=== PATIENT | female | born 1985 ===

== ENCOUNTER 2018-10-15 10:14 | Emergency (ER) | payer OTHER, SELFPAY ==
[2018-10-15] MEDS ORDERED: MORPHINE 2 MG/ML SYR ONE ×2 (10:51→13:55)
[2018-10-15] MEDS ORDERED: ONDANSETRON 4 MG/2 ML VIAL ONE ×2 (10:51→16:18)
[2018-10-15 11:17] LABS: Absolute Lymphocytes (CBC) 1.6 K/uL (0.7-4.9); Absolute Monocytes 0.5 K/uL (0.1-1.3); Basophils % 0.7 % (0-1.3); Eosinophils % 3.5 % (0-4.4); Hematocrit 34.9 % (36.0-45.0); MPV 10.4 fL (7.6-11.3); Monocytes % 8.6 % (3.3-12.3); RBC Red Blood Cell Count 4.02 M/uL (3.86-4.86)
[2018-10-15 11:24] LABS: Protime INR 0.96
[2018-10-15 11:37] LABS: ALT/SGPT 15 U/L (12-78); AST/SGOT 14 U/L (15-37); Albumin 3.3 g/dL (3.4-5.0); Alkaline Phosphatase 55 U/L (45-117); BUN Blood Urea Nitrogen 10 mg/dL (7-18); Bicarbonate 27 mmol/L (21-32); Bilirubin Direct < 0.1 mg/dL (0-0.2); Bilirubin Total 0.2 mg/dL (0.2-1.0); Glucose Level 69 mg/dL (74-106); Sodium Level 140 mmol/L (136-145)
[2018-10-15] MEDS ORDERED: DIPHENHYDRAMINE 50 MG/ML VIAL ONE (12:47)
[2018-10-15 13:10] LABS: Barbiturates NEGATIVE (NEGATIVE); Benzodiazepines NEGATIVE (NEGATIVE); Cocaine POSITIVE (NEGATIVE); METHAMPHETAM NEGATIVE (NEGATIVE); Methadone NEGATIVE (NEGATIVE); Opiates NEGATIVE (NEGATIVE); Phencyclidine NEGATIVE (NEGATIVE); THC Cannibis NEGATIVE (NEGATIVE)
[2018-10-15 13:35] LABS: Lipase 99 U/L (73-393)
[2018-10-15 13:44] LABS: HCG, Quantitative < 1 mIU/mL (1-3)
--- NOTE | 2018-10-15 13:50 | RAD REPORT ---
EXAM DESCRIPTION: CT - Abdomen Pelvis W Contrast - 10/15/2018 1:35 pm CLINICAL HISTORY: Abdominal pain with nausea. COMPARISON: none. TECHNIQUE: Computed axial tomography of the abdomen pelvis was obtained. 100 cc Isovue-300 was admin istered intravenously. Oral contrast was not requested which limits evaluation of bowel. All CT scans are performed using dose optimization technique as appropriate and may include automated exposure control or mA/KV adjustment according to patient size. FINDINGS: The liver, spleen, pancreas, adrenal and kidneys appear unremarkable. There is no evidence of diverticulitis. . An adnexal mass is not seen. IMPRESSION: No acute abnormality is displayed.
[2018-10-15 14:13] LABS: Urine Blood TRACE (NEG); Urine Glucose NEGATIVE (NEG); Urine Protein NEGATIVE (NEG)
--- NOTE | 2018-10-15 14:13 | RAD REPORT ---
EXAM DESCRIPTION: US - Pelvis Complete - 10/15/2018 11:49 am CLINICAL HISTORY: Pelvic pain /vaginal bleeding COMPARISON: None FINDINGS: The uterus measures 8 x 5 x 5cm. The endometrial stripe is not well visualized but does no t appear thickened. A fibroid is not seen. The right ovaries normal in size and echotexture. Left ovary is not visualized. An adnexal mass is no t noted. No significant free fluid is seen. IMPRESSION: No gross abnormality seen If patient's symptoms persist endovaginal sonogram would be recommended
[2018-10-15] MEDS ORDERED: AZITHROMYCIN 250 MG TAB ONE (15:16)
[2018-10-15] MEDS ORDERED: CEFTRIAXONE/SWI 1gm 1 GM/10 ML SYR ONE (15:16)
--- NOTE | 2018-10-15 16:17 | EKG ---
Test Date: 2018-10-15 Test Time: 10:37:59 Senior Piping Designer: YO MEASUREMENT RESULTS: Intervals: Rate: 72 CT: 144 QRSD: 76 QT: 396 QTc: 433 [place]: P: 58 CT: 144 QRS: 59 T: 43 INTERPRETIVE STATEMENTS: Normal sinus rhythm Normal ECG No previous ECG available for comparison Electronically Signed On 10-15-18 16:16:53 FEDERAL JUDGE by Sandeep Gregory
[2018-10-15] MEDS ORDERED: ACETAMINOPHEN 500 MG TAB ONE (16:57)
[2018-10-15] MEDS ORDERED: LORazepam 2 MG/ML VIAL ONE (16:57)
[2018-10-15] MEDS ORDERED: metroNIDAZOLE 500 MG TABLET ONE (23:11)
[2018-10-15] MEDS ORDERED: DOXYCYCLINE 100 MG CAP PO ONE (23:11)
[2018-10-16] MEDS ORDERED: metroNIDAZOLE 500 MG TABLET ONE (10:24)
[2018-10-16] MEDS ORDERED: LORazepam 2 MG/ML VIAL ONE (15:07)
[2018-10-17] MEDS ORDERED: LORazepam 2 MG/ML VIAL ONE ×2 (06:24→09:59)
[2018-10-17] MEDS ORDERED: HYDROCODONE/APAP 10/325 TAB ONE (07:38)
[2018-10-17] MEDS ORDERED: DIAZEPAM 5 MG TABLET ONE (10:17)
[2018-10-17] MEDS ORDERED: ZIPRASIDONE MESYLA 20 MG/VIAL IM ONE ×2 (10:49→12:08)
[2018-10-17] MEDS ORDERED: WATER FOR INJ,STERILE 10 ML ONE ×2 (10:49→12:08)
[2018-10-17] MEDS ORDERED: IBUPROFEN 200 MG TAB PO ONE (14:43)
[2018-10-17] MEDS ORDERED: IBUPROFEN 400 MG TAB ONE (14:43)
[2018-10-17] MEDS ORDERED: DIPHENHYDRAMINE 50 MG/ML VIAL ONE ×2 (16:14→20:09)
[2018-10-18] MEDS ORDERED: DIPHENHYDRAMINE 50 MG/ML VIAL ONE (01:52)
[2018-10-18] MEDS ORDERED: ACETAMINOPHEN 500 MG TAB ONE (02:13)
[2018-10-18] MEDS ORDERED: LORazepam 2 MG/ML VIAL ONE (05:49)
[2018-10-18] MEDS ORDERED: DIPHENHYDRAMINE 25 MG TAB/CAP ONE (06:02)
--- NOTE | 2018-10-18 06:21 | EDPHYS ---
Physician Documentation [facility] Name: Christine Dangelo Age: 33 yrs Sex: Female : 1985 Arrival Date: 10/15/2018 Time: 10:17 Bed 18 Private MD: ED Physician Jacob Kerr HPI: 10/15 10:38 This 33 yrs old Female presents to ER via EMS with complaints of Suicidal Ideation. cp 10:38 The patient presents to the emergency department with auditory hallucinations. Onset: cp The symptoms/episode began/occurred at an unknown time. Past psychiatric history: Psychiatric medications include: Zyprexa, the patient has had a prior suicide gesture, where the patient took pills/meds, the patient has a previous inpatient psychiatric history, last week. 10:38 The patient presents with vaginal bleeding that is with no clots, vaginal discharge, cp lower abdomen pain. 10:38 Associated signs and symptoms: Pertinent negatives: constipation, diarrhea, fever. The cp patient's method of control includes nothing. SITE HEAD: 10:29 reports she is unsure since she's been bleeding for 4 weeks em Historical: - Allergies: 10:28 PENICILLINS; em 10:28 Toradol; em 10:28 Pyridium; em - Home Meds: 10:28 hydroxyzine HCl 25 mg Oral tab [Active]; trazodone 50 mg Oral tab [Active]; olanzapine em 5 mg oral TbDL [Active]; - PMHx: 10:29 osteomyelitis; em - PSHx: 10:29 ; right hand surgery; em - Immunization history:: Adult Immunizations up to date. - Social history:: Smoking status: Patient uses tobacco products, smokes one-half pack cigarettes per day. - Ebola Screening: : Patient negative for fever greater than or equal to 101.5 degrees Fahrenheit, and additional compatible Ebola Virus Disease symptoms Patient denies exposure to infectious person Patient denies travel to an Ebola-affected area in the 21 days before illness onset No symptoms or risks identified at this time. ROS: 10:40 Constitutional: Negative for body aches, chills, fever, poor PO intake. cp 10:40 Eyes: Negative for injury, pain, redness, and discharge. cp 10:40 ENT: Negative for drainage from ear(s), ear pain, sore throat, difficulty swallowing, difficulty handling secretions. 10:40 Cardiovascular: Negative for chest pain, edema, palpitations. 10:40 Respiratory: Negative for cough, shortness of breath, wheezing. 10:40 Abdomen/GI: Positive for abdominal pain, of the right lower quadrant and left lower quadrant, Negative for vomiting, diarrhea, constipation, black/tarry stool, rectal bleeding. 10:40 Back: Negative for pain at rest, pain with movement, radiated pain. 10:40 : Positive for pelvic pain, vaginal bleeding, vaginal discharge, Negative for urinary symptoms. 10:40 Skin: Negative for cellulitis, rash. 10:40 Neuro: Negative for altered mental status, headache, weakness. 10:40 All other systems are negative. Exam: 10:45 ECG was reviewed by the Attending Physician. cp 11:00 Constitutional: The patient appears in no acute distress, alert, awake, non-toxic, well cp developed, well nourished, uncomfortable. 11:00 Head/Face: Normocephalic, atraumatic. cp 11:00 Eyes: Periorbital structures: appear normal, Pupils: equal, round, and reactive to light and accomodation, Extraocular movements: intact throughout, Conjunctiva: normal, no exudate, no injection, Sclera: no appreciated abnormality, Lids and lashes: appear normal, bilaterally. 11:00 ENT: External ear(s): are unremarkable, Ear canal(s): are normal, clear, TM's: are normal, Nose: is normal, Mouth: Lips: moist, Oral mucosa: pink and intact, moist, Posterior pharynx: is normal, airway is patent, no erythema, no exudate, Voice: is normal. 11:00 Neck: ROM/movement: is normal, is supple. 11:00 Chest/axilla: Inspection: normal, Palpation: is normal, no crepitus, no tenderness. 11:00 Cardiovascular: Rate: normal, Rhythm: regular. 11:00 Respiratory: the patient does not display signs of respiratory distress, Respirations: normal, no use of accessory muscles, no retractions, no splinting, no tachypnea, labored breathing, is not present, Breath sounds: are clear throughout, no decreased breath sounds, no stridor, no wheezing. 11:00 Abdomen/GI: Inspection: abdomen appears normal, Bowel sounds: active, all quadrants, Palpation: soft, in all quadrants, mild abdominal tenderness, in the right lower quadrant and left lower quadrant, rebound tenderness, is not appreciated, involuntary guarding, is not appreciated. 11:00 Back: pain, is absent, ROM is normal. 11:00 Skin: cellulitis, is not appreciated, no rash present. 11:00 Neuro: Orientation: to person, place \\T\\ time. Mentation: is normal, Cerebellar function: is grossly normal, Motor: moves all fours, strength is normal, Sensation: is normal. 11:00 Psych: Patient having thoughts of suicide. Plan for suicide is walk into traffic Delusions/hallucinations are present and described as auditory voices. 14:05 : Pelvic Exam: External exam: is normal, Speculum exam: scant bleeding, no cp cervicitis, os that is closed, no tissue in cervix is seen, no tissue in vagina is seen, bimanual exam reveals cervical motion tenderness, uterine tenderness, right adnexal tenderness, left adnexal tenderness, no adnexal mass on right, no adnexal mass on left, discharge, bloody, the nurse was present for the exam. Vital Signs: 10:29 BP 110 / 71; Pulse 89; Resp 18; Temp 97.9(O); Pulse Ox 100% on R/A; Weight 68.04 kg; em Height 5 ft. 5 in. (165.10 cm); Pain 8/10; 14:00 BP 109 / 74; Pulse 75; Resp 16; Temp 98.2(O); Pulse Ox 99% ; em 18:16 BP 98 / 59; Pulse 90; Resp 17; Temp 98.5; Pulse Ox 98% ; rf 20:47 BP 95 / 61; Pulse 86; Resp 16; Temp 98.1(TE); Pulse Ox 97% ; ag4 02/09 06:49 BP 93 / 67; Pulse 68; Resp 15; Temp 97.9(TE); Pulse Ox 98% on R/A; ag4 10:29 BP 101 / 62; Pulse 88; Resp 16; Temp 98.0; Pulse Ox 99% on R/A; jd2 16:03 BP 116 / 79; Pulse 80; Resp 18; Pulse Ox 100% ; jd2 21:32 BP 94 / 59; Pulse 70; Resp 16; Temp 98.4; Pulse Ox 98% on R/A; ar5 10/17 04:05 BP 102 / 71; Pulse 80; Resp 18; Temp 98.3; Pulse Ox 97% on R/A; ar5 07:30 BP 119 / 71; Pulse 92; Resp 16; Pulse Ox 97% on R/A; dh3 12:19 BP 110 / 72; Pulse 81; Resp 18; Pulse Ox 100% on R/A; aj1 16:19 BP 103 / 70; Pulse 83; Resp 17; Pulse Ox 100% on R/A; aj1 10/18 01:38 BP 91 / 64; Pulse 76; Resp 14; Temp 98(O); Pulse Ox 98% on R/A; tl2 07:31 BP 106 / 76; Pulse 69; Resp 18; Temp 97.8(O); Pulse Ox 100% on R/A; mh5 10/15 10:29 Body Mass Index 24.96 (68.04 kg, 165.10 cm) em MDM: 10/15 10:18 Patient medically screened. 14:30 Data reviewed: vital signs, nurses notes, lab test result(s), radiologic studies, CT cp scan, ultrasound. 22:50 ED course: VSS. Patient sleeping in exam room at this time. 10/16 03:19 Transition of care: After a detail discussion of the patient's case, care is jmm transferred to Kyle Adler MD. 07:30 ED course: Patient resting quietly in room. She reports hearing voices that tell her to pm1 hurt and kill herself. Patient has been hearing these voices for years. 14:50 ED course: Patient reports increased anxiety, will give order Ativan. Patient pending pm1 placement to psychiatric facility. 17:08 ED course: Patient complaining of continued anxiety. Requested TV. Patient calm after pm1 moving her to room with TV. 19:44 Counseling: I had a detailed discussion with the patient and/or guardian regarding: snw spoke with pt and asked how it was going. Pt states, "I'm waiting for a bed. I'm hearing voices and suicidal." I asked pt what her plan was. Pt states, "I'd walk into traffic". 10/17 01:05 ED course: no complaints, pt still states suicidal ideation, no outbursts, cooperative, snw voluntary. 06:08 ED course: Talked to patient. Said she is very anxious. Requests medication for her pkl anxiety. Ask if she is having suicidal ideation still. She said she is.. 07:00 ED course: Pt still suicidal, warrant expires soon, cooperative and still reports plan rn to jump in front of car. Per charge nurse, mental health deputy plans to pick her up and take her to mental health facility. . 16:09 ED course: Pt still mildly agitated, benadryl ordered, otherwise not causing any rn problems. . 10/18 09:09 Response to treatment: the patient's symptoms have mildly improved after treatment, and gs as a result, I will continue to observe the patient. ED course: PT SEEN AND EXAMINED AGITATED WANTS BACK ON HER REGULAR MEDS, CONFIRMED MEDS FROM [facility]. AWAITING PLACEMENT.. 10/15 10:19 Order name: Acetaminophen; Complete Time: 12:28 cp 10/15 10:19 Order name: Basic Metabolic Panel; Complete Time: 12:28 cp 10/15 14:21 Interpretation: Normal except: CL 109; GLUC 69; CA 8.3. cp 10/15 10:19 Order name: CBC with Diff; Complete Time: 11:23 cp 10/15 11:24 Interpretation: Normal except: HGB 11.4; HCT 34.9; RDW 17.7. cp 10/15 10:19 Order name: ETOH Level; Complete Time: 12:28 cp 10/15 10:19 Order name: Hepatic Function; Complete Time: 12:28 cp 10/15 10:19 Order name: PT-INR; Complete Time: 12:28 cp 10/15 10:19 Order name: Ptt, Activated; Complete Time: 12:28 cp 10/15 10:19 Order name: Salicylate; Complete Time: 12:28 cp 10/15 10:19 Order name: Urine Drug Screen; Complete Time: 14:19 cp 10/15 14:20 Interpretation: Normal except: NELLIE POSITIVE. cp 10/15 10:35 Order name: Lipase; Complete Time: 14:19 cp 10/15 10:35 Order name: Wet Prep; Complete Time: 14:19 cp 10/15 14:20 Interpretation: Reviewed. cp 10/15 10:35 Order name: GC (GONORR/CHLAMYDIA) Probe cp 10/15 12:56 Order name: Urine Dipstick--Ancillary (enter results); Complete Time: 14:19 eb 10/15 10:35 Order name: US Pelvis Complete; Complete Time: 14:19 cp 10/15 12:30 Order name: CT Abd/Pelvis - W/Contrast: no oral contrast; Complete Time: 14:19 cp 10/15 12:56 Order name: Urine --Ancillary (enter results); Complete Time: 14:19 eb 10/15 13:24 Order name: HCG, Quantitative; Complete Time: 14:19 EDMS 10/15 10:19 Order name: EKG; Complete Time: 10:20 cp 10/15 10:19 Order name: EKG - Nurse/Tech; Complete Time: 11:26 cp 10/15 10:19 Order name: IV Saline Lock; Complete Time: 11:26 cp 10/15 10:19 Order name: Labs collected and sent; Complete Time: 11:26 cp 10/15 14:18 Order name: Diet Regular; Complete Time: 14:18 em 10/16 08:47 Order name: Diet Regular; Complete Time: 08:48 jd2 10/16 11:39 Order name: Diet Regular; Complete Time: 11:40 jd2 10/16 15:56 Order name: Diet Regular; Complete Time: 15:57 jd2 10/17 07:57 Order name: Diet Regular; Complete Time: 07:58 hb 10/17 11:04 Order name: Diet Finger Food; Complete Time: 11:04 dh3 10/17 14:21 Order name: Diet Finger Food; Complete Time: 14:21 dh3 10/17 16:38 Order name: Diet Finger Food; Complete Time: 16:38 aj1 10/17 16:44 Order name: Diet Finger Food; Complete Time: 16:44 dh3 10/18 07:37 Order name: Diet Regular; Complete Time: 07:38 mh5 10/15 10:19 Order name: Urine Dipstick-Ancillary (obtain specimen); Complete Time: 13:42 cp EC/08 10:45 Rate is 72 beats/min. Rhythm is regular. OK interval is normal. QRS interval is normal. cp QT interval is normal. T waves are Inverted in lead V2. Interpreted by me. Reviewed by me. Administered Medications: 11:10 Drug: Zofran 4 mg Route: IVP; Site: left upper arm; sv 13:42 Follow up: Response: No adverse reaction em 11:12 Drug: morphine 2 mg Route: IVP; Site: left upper arm; sv 13:42 Follow up: Response: No adverse reaction; Pain is decreased em 12:47 Drug: Benadryl 12.5 mg Route: IVP; Site: left upper arm; hb 13:42 Follow up: Response: No adverse reaction em 13:50 Drug: morphine 2 mg Route: IVP; Site: left upper arm; em 16:00 Follow up: Response: No adverse reaction; Pain is decreased em 16:11 Drug: Zofran 4 mg Route: IVP; Site: left upper arm; em 16:43 Follow up: Response: No adverse reaction; Nausea is decreased em 16:18 Drug: Zithromax 1 grams Route: PO; em 16:43 Follow up: Response: No adverse reaction em 16:33 Drug: Rocephin - (cefTRIAXone) 1 grams {Note: administered IVP per pharmacy at this aa5 time. .} Route: IVPB; Infused Over: 30 mins; Site: right upper arm; 16:48 Drug: Ativan 0.5 mg Route: IVP; Site: left upper arm; aa5 17:32 Follow up: Response: No adverse reaction; Anxiety decreased em 16:57 Drug: Tylenol 1000 mg Route: PO; em 17:32 Follow up: Response: No adverse reaction em 23:03 Drug: Doxycycline 100 mg Route: PO; ea 10/16 00:00 Follow up: Response: No adverse reaction ea 10/15 23:03 Drug: metroNIDAZOLE 250 mg Route: PO; ea 10/16 05:27 Follow up: Response: No adverse reaction ea 10:10 Drug: Flagyl 2 grams Route: PO; em 10:34 Follow up: Response: No adverse reaction em 15:03 Drug: Ativan 0.5 mg Route: IVP; Site: left upper arm; em 16:30 Follow up: Response: No adverse reaction em 02 06:23 Not Given (Other Intervention Used): Ativan 0.5 mg IVP once jb4 06:23 Drug: Ativan 1 mg Route: IVP; Site: left antecubital; jb4 07:29 Follow up: Response: No adverse reaction; Anxiety decreased hb 07:28 Drug: [place] 10 mg-325 mg 1 tabs Route: PO; hb 08:15 Follow up: Response: No adverse reaction hb 09:51 Drug: Ativan 1 mg Route: IVP; Site: left antecubital; hb 11:00 Follow up: Response: No change in condition hb 10:09 Drug: Valium 5 mg Route: PO; hb 11:00 Follow up: Response: No change in condition hb 10:41 Drug: Geodon 10 mg Route: IM; Site: right deltoid; hb 12:00 Drug: Geodon 10 mg Route: IM; Site: right deltoid; aj1 10/18 07:22 Follow up: Response: No adverse reaction hj 10/17 16:06 Drug: Benadryl 25 mg Route: IVP; Site: left antecubital; aj1 20:02 Drug: Benadryl 25 mg Route: IVP; Site: left upper arm; tl2 21:00 Follow up: Response: No adverse reaction; Anxiety decreased tl2 10/18 01:45 Drug: Benadryl 25 mg Route: IVP; Site: left upper arm; tl2 07:22 Follow up: Response: No adverse reaction hj 02:05 Drug: Tylenol 1000 mg Route: PO; tl2 03:00 Follow up: Response: No adverse reaction; Pain is decreased jb4 05:00 Drug: Benadryl 25 mg Route: PO; jb4 06:57 Follow up: Response: No adverse reaction jb4 08:42 Drug: [place] 5 mg-325 mg 1 tabs Route: PO; hj 09:19 Follow up: Response: No adverse reaction hj 08:42 Drug: KeFLEX 500 mg Route: PO; hj 09:19 Follow up: Response: No adverse reaction hj 08:42 Drug: hydrOXYzine 25 mg Route: PO; hj 09:18 Follow up: Response: No adverse reaction hj 09:17 Drug: ZyPREXA 10 mg Route: PO; hj 09:20 Follow up: Response: No adverse reaction hj 09:17 Drug: TRAZADONE 50 mg Route: PO; hj 09:19 Follow up: Response: No adverse reaction hj Disposition: 06:16 Co-signature as Attending Physician, Kristian Ochoa MD I agree with the assessment and ricky plan of care. Disposition: 10/18/18 06:19 Transfer ordered to Psych Facility. Diagnosis are Suicidal ideations, Major depressive disorder, recurrent, Cocaine abuse. - Reason for transfer: Higher level of care. - Accepting physician is psych. - Condition is Stable. - Problem is new. - Symptoms have improved. Signatures: Dispatcher [employer] EDAR Shakira Ponce, RN RN aj1 Shannon Arellano, RN Kristian Estrada MD MD cha Lam, Pin, MD MD pkPriya Pickett, GOLF TECHNICIAN-C GOLF TECHNICIAN-Csnw Matias Cruz PA PA jmm Munoz, Edgar, TERMINAL MAKEUP OPERATOR TERMINAL MAKEUP OPERATOR em Kiran Cole MD MD rn Calderon, Audri RN RN aa5 Danny Hernandez, RN Kristian Rogers PA PA cp Marinas, Patrick, STILL RUNNER STILL RUNNER pm1 Ashley Vance, RN RN hb Jade Davila RN RN tl2 Isaiah Storm, RN RN jb4 Suellen Mills RN RN Jacob lSoan MD MD gs Corrections: (The following items were deleted from the chart) 10/15 13:21 10:39 QUANTITATIVE HCG+C.LAB.BRZ ordered. EDAR EDMS 14:21 14:21 Normal except: CL 109; GLUC 69. cp cp 10/18 10:05 06:19 10/18/2018 06:19 Transfer ordered to Psych Facility. Diagnosis is Suicidal hj ideations; Major depressive disorder, recurrent; Cocaine abuse. Reason for transfer: Higher level of care. Accepting physician is psych. Condition is Stable. Problem is new. Symptoms have improved. ricky
--- NOTE | 2018-10-18 06:21 | ER ---
Nurse's Notes [facility] Name: Christine Dangelo Age: 33 yrs Sex: Female : 1985 Arrival Date: 10/15/2018 Time: 10:17 Bed 18 Private MD: Diagnosis: Suicidal ideations;Major depressive disorder, recurrent;Cocaine abuse Presentation: 10/15 10:17 Presenting complaint: EMS states: called out for auditory hallucinations and SI to em [facility], pt reports voices saying she is "bad person and doesn't need to live" does not have a plan, also reports PID with groin pain that radiates to right side, denies fever, N/V. Transition of care: patient was not received from another setting of care. Onset of symptoms was October 15, 2018. Risk Assessment: Do you want to hurt yourself or someone else? Patient reports no desire to harm self or others. Initial Sepsis Screen: Does the patient meet any 2 criteria? No. Patient's initial sepsis screen is negative. Does the patient have a suspected source of infection? No. Patient's initial sepsis screen is negative. Care prior to arrival: None. 10:17 Method Of Arrival: EMS: [facility] em 10:18 Acuity: STEPHANI 2 hb Triage Assessment: 10:29 General: Appears in no apparent distress. comfortable, Behavior is calm, cooperative. em Pain: Complains of pain in groin Pain radiates to right iliac crest Pain currently is 8 out of 10 on a pain scale. BUSINESS CONSULTANT: 10:29 reports she is unsure since she's been bleeding for 4 weeks em Historical: - Allergies: 10:28 PENICILLINS; em 10:28 Toradol; em 10:28 Pyridium; em - Home Meds: 10:28 hydroxyzine HCl 25 mg Oral tab [Active]; trazodone 50 mg Oral tab [Active]; olanzapine em 5 mg oral TbDL [Active]; - PMHx: 10:29 osteomyelitis; em - PSHx: 10:29 ; right hand surgery; em - Immunization history:: Adult Immunizations up to date. - Social history:: Smoking status: Patient uses tobacco products, smokes one-half pack cigarettes per day. - Ebola Screening: : Patient negative for fever greater than or equal to 101.5 degrees Fahrenheit, and additional compatible Ebola Virus Disease symptoms Patient denies exposure to infectious person Patient denies travel to an Ebola-affected area in the 21 days before illness onset No symptoms or risks identified at this time. Screenin:32 Abuse screen: Denies threats or abuse. Nutritional screening: No deficits noted. em Tuberculosis screening: No symptoms or risk factors identified. Fall Risk None identified. Assessment: 10:30 General: Appears in no apparent distress. comfortable, Behavior is calm, cooperative, em Denies fever, reports auditory hallucinations, reports being SI. Pain: Complains of pain in pelvis Pain currently is 7 out of 10 on a pain scale. Neuro: Level of Consciousness is awake, alert, obeys commands, Oriented to person, place, time, situation. Cardiovascular: Capillary refill < 3 seconds Patient's skin is warm and dry. Respiratory: Airway is patent Respiratory effort is even, unlabored, Respiratory pattern is regular, symmetrical. GI: Abdomen is flat, Bowel sounds present X 4 quads. Abd is soft and non tender X 4 quads. Reports nausea. Derm: Skin is intact, is healthy with good turgor, Skin is pink, warm \\T\\ dry. Musculoskeletal: Range of motion: intact in all extremities. 10:40 Reassessment: I agree with previous assessment. hb 12:30 Reassessment: Patient appears in no apparent distress at this time. Patient and/or em family updated on plan of care and expected duration. Pain level reassessed. Patient is alert, oriented x 3, equal unlabored respirations, skin warm/dry/pink. request something for anxiety, provider notified, new medication orders received. 13:30 Reassessment: request something for pain, provider notified, new medication orders em received, rates pain 03/16. 14:55 Reassessment: Patient appears in no apparent distress at this time. Patient and/or em family updated on plan of care and expected duration. Pain level reassessed. Patient is alert, oriented x 3, equal unlabored respirations, skin warm/dry/pink. resting comfortably after eating lunch Patient states feeling better. 15:14 Reassessment: spoke with Kiko at [facility], "will not be able to send a em screener for several hours". 16:05 Reassessment: reports Zithromax and Rocephin will make pt nauseous, provider notified, em new medication orders received. 16:54 Reassessment: Patient appears in no apparent distress at this time. Patient and/or em family updated on plan of care and expected duration. Pain level reassessed. Patient is alert, oriented x 3, equal unlabored respirations, skin warm/dry/pink. 18:23 Reassessment: Patient appears in no apparent distress at this time. Patient and/or em family updated on plan of care and expected duration. Pain level reassessed. Patient is alert, oriented x 3, equal unlabored respirations, skin warm/dry/pink. resting comfortably, pending [facility] sales representative trainee to come evaluate pt. 20:05 General: Appears in no apparent distress. Behavior is calm, cooperative. Pain: Denies ea pain. Neuro: Level of Consciousness is awake, alert, obeys commands, Oriented to person, place, time, situation. Cardiovascular: Patient's skin is warm and dry. Respiratory: Airway is patent Respiratory effort is even, unlabored, Respiratory pattern is regular, symmetrical. GI: Abdomen is flat, Bowel sounds present X 4 quads. Abd is soft and non tender X 4 quads. Derm: Skin is intact, is healthy with good turgor, Skin is pink, warm \\T\\ dry. Musculoskeletal: Circulation, motion, and sensation intact. 21:00 Reassessment: Patient and/or family updated on plan of care and expected duration. Pain ea level reassessed. Patient is alert, oriented x 3, equal unlabored respirations, skin warm/dry/pink. [place] at bedside. 22:43 Reassessment: Patient and/or family updated on plan of care and expected duration. Pain ea level reassessed. Pt resting with eyes closed, Respiration even and unlabored. Chest expansions even and symmetrical. No s/s of pain or discomfort noted at this time. 23:00 Reassessment: No changes from previously documented assessment. Patient and/or family ea updated on plan of care and expected duration. Pain level reassessed. 10/16 00:00 Reassessment: Patient and/or family updated on plan of care and expected duration. Pain ea level reassessed. Pt resting with eyes closed, respirations even and unlabored, chest expansions even and symmetrical. No s/s of pain or discomfort noted at this time. 01:10 Reassessment: No changes from previously documented assessment. Patient and/or family ea updated on plan of care and expected duration. Pain level reassessed. 02:00 Reassessment: Patient and/or family updated on plan of care and expected duration. Pain ea level reassessed. Pt resting with eyes closed, respirations even and unlabored, chest expansions even and symmetrical. no s/s of pain or discomfort noted at this time. 03:24 Reassessment: Patient and/or family updated on plan of care and expected duration. Pain ea level reassessed. Pt resting with eyes closed, respirations even and unlabored. Chest expansions even and symmetrical. No obvious s/s of pain or discomfort noted. 04:00 Reassessment: No changes from previously documented assessment. Patient and/or family ea updated on plan of care and expected duration. Pain level reassessed. 05:00 Reassessment: Patient and/or family updated on plan of care and expected duration. Pain ea level reassessed. Pt resting with eyes closed, respirations even and unlabored. chest expansions even and symmetrical. No s/s of pain or discomfort noted at this time. 07:15 Reassessment: Patient appears in no apparent distress at this time. pt resting em comfortably, sitter at bedside. 08:43 Reassessment: Patient appears in no apparent distress at this time. Patient and/or em family updated on plan of care and expected duration. Pain level reassessed. Patient is alert, oriented x 3, equal unlabored respirations, skin warm/dry/pink. 09:00 Reassessment: breakfast tray given to pt, tolerated well. em 09:43 Reassessment: Patient appears in no apparent distress at this time. Patient and/or em family updated on plan of care and expected duration. Pain level reassessed. Patient is alert, oriented x 3, equal unlabored respirations, skin warm/dry/pink. 11:00 Reassessment: Patient appears in no apparent distress at this time. Patient and/or em family updated on plan of care and expected duration. Pain level reassessed. Patient is alert, oriented x 3, equal unlabored respirations, skin warm/dry/pink. 12:00 Reassessment: Patient appears in no apparent distress at this time. Patient and/or em family updated on plan of care and expected duration. Pain level reassessed. Patient is alert, oriented x 3, equal unlabored respirations, skin warm/dry/pink. 13:26 Reassessment: Patient appears in no apparent distress at this time. Patient and/or em family updated on plan of care and expected duration. Pain level reassessed. Patient is alert, oriented x 3, equal unlabored respirations, skin warm/dry/pink. pending placement, pt reports she is still hearing voices. 14:28 Reassessment: Patient appears in no apparent distress at this time. Patient and/or em family updated on plan of care and expected duration. Pain level reassessed. Patient is alert, oriented x 3, equal unlabored respirations, skin warm/dry/pink. 16:24 Reassessment: request more Ativan or diazepam, provider notified, no new orders em received, pt also request a room with a TV that works, charge nurse notified, moved to ER 18. 18:03 Reassessment: Patient appears in no apparent distress at this time. Patient and/or em family updated on plan of care and expected duration. Pain level reassessed. Patient is alert, oriented x 3, equal unlabored respirations, skin warm/dry/pink. 19:00 Reassessment: Patient appears in no apparent distress at this time. Patient and/or jb4 family updated on plan of care and expected duration. Pain level reassessed. Pt is resting peacefully in bed, Respirations even and unlabored. 20:00 Reassessment: Patient appears in no apparent distress at this time. No changes from jb4 previously documented assessment. Patient and/or family updated on plan of care and expected duration. Pain level reassessed. 21:35 Reassessment: Patient appears in no apparent distress at this time. Patient and/or jb4 family updated on plan of care and expected duration. Pain level reassessed. Patient is alert, oriented x 3, equal unlabored respirations, skin warm/dry/pink. 23:13 Reassessment: Patient appears in no apparent distress at this time. Patient and/or jb4 family updated on plan of care and expected duration. Pain level reassessed. Pt is resting quietly in bed, respirations are even and unlabored. 10/17 00:00 Reassessment: Patient appears in no apparent distress at this time. No changes from jb4 previously documented assessment. Patient and/or family updated on plan of care and expected duration. Pain level reassessed. 01:00 Reassessment: Patient appears in no apparent distress at this time. No changes from jb4 previously documented assessment. Patient and/or family updated on plan of care and expected duration. Pain level reassessed. 02:00 Reassessment: Patient appears in no apparent distress at this time. No changes from jb4 previously documented assessment. Patient and/or family updated on plan of care and expected duration. Pain level reassessed. 03:00 Reassessment: Patient appears in no apparent distress at this time. No changes from jb4 previously documented assessment. Patient and/or family updated on plan of care and expected duration. Pain level reassessed. 04:00 Reassessment: Patient appears in no apparent distress at this time. No changes from jb4 previously documented assessment. Patient and/or family updated on plan of care and expected duration. Pain level reassessed. 05:00 Reassessment: Patient appears in no apparent distress at this time. No changes from jb4 previously documented assessment. Patient and/or family updated on plan of care and expected duration. Pain level reassessed. 06:00 Reassessment: Patient appears in no apparent distress at this time. Patient and/or jb4 family updated on plan of care and expected duration. Pain level reassessed. Patient is alert, oriented x 3, equal unlabored respirations, skin warm/dry/pink. 07:15 General: Appears in no apparent distress. Behavior is calm, cooperative. Pain: Pain hb currently is 10 out of 10 on a pain scale. Neuro: Level of Consciousness is awake, alert, obeys commands, Oriented to person, place, time, situation. Cardiovascular: Capillary refill < 3 seconds Patient's skin is warm and dry. Respiratory: Airway is patent Respiratory effort is even, unlabored, Respiratory pattern is regular, symmetrical, Breath sounds are clear bilaterally. GI: Abdomen is flat, Bowel sounds present X 4 quads. Abd is soft and non tender X 4 quads. Reports lower abdominal pain. : No signs and/or symptoms were reported regarding the genitourinary system. EENT: No signs and/or symptoms were reported regarding the EENT system. Derm: Skin is intact, is healthy with good turgor. Musculoskeletal: 07:31 Reassessment: Pt c/o lower abdominal pain 06/16. Dr. Cole notified, Stigler administered hb as ordered. 08:31 Reassessment: Called [facility] who states they have no beds at this time ss and patient remains on a wait list. 09:46 Reassessment: Pt pacing hallway, refusing to go back into room, c/o severe anxiety and hb requesting medication. Dr. Cole notified, Ativan administered as ordered. 10:04 Reassessment: Patient is pacing hallway, Mental Health deputy called as patient has had ss an extended stay and there are no available beds at this time at any appropriate facilites. 10:07 Reassessment: Pt pacing hallway, refusing to return to room. Security called. Dr. Cole hb aware. 10:35 Reassessment: Security called. Pt pacing hallway, extremely agitated, pacing the hb hallways, screaming for more medication and to see the doctor again. 10:45 Reassessment: [facility] Called. hb 10:58 Reassessment: Geodon administered as ordered. Immediately after administration pt began hb screaming "I want fucking medicine that fucking works, not shit that doesn't work for me!" Pt then started thrashing in the bed, threw the metal bedside table toward the nurse, knocking table over, then began throwing her juice and water cup towards doorway. [facility] at bedside at this time. Dr. Cole aware. 11:01 Reassessment: Mental health deputy has written an emergency retirement warrant at this ss time. 11:07 Reassessment: Called [facility] who's intake staff states, "the patient is not funded, so we cannot take her". 11:11 Reassessment: Attempted to call [facility], no answer. 11:26 Reassessment: Attempted to call [facility] who reports that patient has been denies ss due to no beds. Called [facility] who reports that despite faxing clinicals three times they have yet to receive clinicals, will refax again. Fax number verified and is correct. Called [facility] who reports that they have no beds available at this time. [facility] has been called and states that patient has been denies due to lack of capability. Tammy with [facility] states that they just do not have beds at this time and suggests to refax clinicals tomorrow as they may have patients up for discharge at that time. Called [facility] who reports that they also at this time have no beds available. 11:35 Reassessment: Patient states that she is hungry, patient was provided crackers and aj1 peanut butter. 12:15 Reassessment: Patient states that she is still hungry and cannot wait until lunch trays aj1 are delivered. Patient provided a sandwich. 13:00 Reassessment: Patient provided with lunch tray. aj1 13:49 Reassessment: Patient is resting comfortably with eyes closed. Awakens easily to verbal aj1 stimuli. 14:23 Reassessment: Patient states that she is hungry and would like another sandwich. aj1 Patient provided with a sandwich and chips. 18:05 Reassessment: Patient is wondering the halls, patient was instructed to return to room. aj1 Patient would stand outside her room and scream. Patient is also hitting the bailey and throwing objects. Sg BACA was called. 18:10 Reassessment: Patient has returned to her bed, is sitting up in the bed screaming. aj1 18:11 Reassessment: SARIAH BACA at bedside talking to patient. Patient appears calm at this time. aj1 19:41 General: Appears in no apparent distress. comfortable, Behavior is calm, pt appears to tl2 be sleeping at this time. RR even and unlabored. Respiratory: Airway is patent Respiratory effort is even, unlabored, Respiratory pattern is regular, symmetrical. GI: No signs and/or symptoms were reported involving the gastrointestinal system. Derm: Skin is pink, warm \\T\\ dry. 21:00 Reassessment: Patient appears in no apparent distress at this time. Patient and/or tl2 family updated on plan of care and expected duration. Pain level reassessed. Patient is alert, oriented x 3, equal unlabored respirations, skin warm/dry/pink. 22:00 Reassessment: Patient appears in no apparent distress at this time. Patient and/or tl2 family updated on plan of care and expected duration. Pain level reassessed. pt appears to be sleeping, RR even and unlabored. 23:00 Reassessment: Patient appears in no apparent distress at this time. Patient and/or tl2 family updated on plan of care and expected duration. Pain level reassessed. 10/18 01:45 Reassessment: Patient appears in no apparent distress at this time. Patient and/or tl2 family updated on plan of care and expected duration. Pain level reassessed. Patient is alert, oriented x 3, equal unlabored respirations, skin warm/dry/pink. woke pt up for vitals, pt requested more benadryl, notified MD, see NOV. [place] and drink provided. Pt calm and cooperative. 02:00 Reassessment: Pt requested Stigler for pelvic pain, MD ordered for 1000 mg Tylenol. See tl2 MAR. 03:00 Reassessment: Patient appears in no apparent distress at this time. Patient and/or jb4 family updated on plan of care and expected duration. Pain level reassessed. Pt is resting quietly in bed, respirations even and unlabored. 04:00 Reassessment: Patient appears in no apparent distress at this time. No changes from jb4 previously documented assessment. Patient and/or family updated on plan of care and expected duration. Pain level reassessed. 05:00 Reassessment: Patient appears in no apparent distress at this time. Patient and/or jb4 family updated on plan of care and expected duration. Pain level reassessed. Patient is alert, oriented x 3, equal unlabored respirations, skin warm/dry/pink. 06:00 Reassessment: Patient appears in no apparent distress at this time. Patient and/or jb4 family updated on plan of care and expected duration. Pain level reassessed. Patient is alert, oriented x 3, equal unlabored respirations, skin warm/dry/pink. 07:07 General: Appears in no apparent distress. comfortable, Behavior is cooperative, hj appropriate for age, anxious. Pain: Denies pain. Neuro: Level of Consciousness is awake, alert, obeys commands, Oriented to person, place, time, situation. Cardiovascular: Capillary refill < 3 seconds Patient's skin is warm and dry. Respiratory: Airway is patent Respiratory effort is even, unlabored, Respiratory pattern is regular, symmetrical, Breath sounds are clear. GI: No signs and/or symptoms were reported involving the gastrointestinal system. : No signs and/or symptoms were reported regarding the genitourinary system. EENT: No signs and/or symptoms were reported regarding the EENT system. Derm: No signs and/or symptoms reported regarding the dermatologic system. Musculoskeletal: No signs and/or symptoms reported regarding the musculoskeletal system. 08:34 Reassessment: pt standing in doorway, crying, states "why won't anyone help me, I've iw been asking for medicine since 7 am, where is the doctor, why hasn't he come back to see me", pt walked out of room, encouraged pt to come back to room, pt still crying, walked out to ER lobby, security called, pt was verbally encouraged to return to bed 18, pt walking back to room, crying, pt agrees to stay in room and wait for med orders from MD. 08:55 Reassessment: pt still crying, screaming, hitting hand against the wall, security at iw bedside, [place] [employer] called. 09:01 Reassessment: pt medicated; in room with officers. 09:09 Reassessment: Tanner Kapadia RN called for nurse to nurse report, spoke with Disha; gave hj accepting MD, Dr. Al, ; to call back nurse Disha after doc to doc report at [phone];. Psych: 10/15 10:33 Subjective: Patient's mood is sad, Delusions are denied, Hallucinations are auditory, em Having thoughts of suicide. Denies suicidal plan. Objective: Patient is cooperative, Speech is slow, Affect is flat. Interventions: Patient placed in hospital gown. Suicide Risk Assessment: Sad Person Scale: Sex of patient: Female: Score 0 points. Age of patient: Score 1 point if patient 15-34. Depression: Score 1 point if signs of depression are present. Previous Attempt: Substance Abuse: Score 1 point if patient abuses alcohol or drugs. Rational Thinking: Organized Plan: Score 0 if patient did not have an organized plan in place. Safety Checks: Personal items have been removed. Door is open. No visitors are present at this time. Patient uses cocaine, Last use was 1 months ago. Patient uses marijuana Last use was 1 months ago. Commitment: Patient will be a voluntary commitment. Vital Signs: 10:29 BP 110 / 71; Pulse 89; Resp 18; Temp 97.9(O); Pulse Ox 100% on R/A; Weight 68.04 kg; em Height 5 ft. 5 in. (165.10 cm); Pain 8/10; 14:00 BP 109 / 74; Pulse 75; Resp 16; Temp 98.2(O); Pulse Ox 99% ; em 18:16 BP 98 / 59; Pulse 90; Resp 17; Temp 98.5; Pulse Ox 98% ; rf 20:47 BP 95 / 61; Pulse 86; Resp 16; Temp 98.1(TE); Pulse Ox 97% ; ag4 02/09 06:49 BP 93 / 67; Pulse 68; Resp 15; Temp 97.9(TE); Pulse Ox 98% on R/A; ag4 10:29 BP 101 / 62; Pulse 88; Resp 16; Temp 98.0; Pulse Ox 99% on R/A; jd2 16:03 BP 116 / 79; Pulse 80; Resp 18; Pulse Ox 100% ; jd2 21:32 BP 94 / 59; Pulse 70; Resp 16; Temp 98.4; Pulse Ox 98% on R/A; ar5 10/17 04:05 BP 102 / 71; Pulse 80; Resp 18; Temp 98.3; Pulse Ox 97% on R/A; ar5 07:30 BP 119 / 71; Pulse 92; Resp 16; Pulse Ox 97% on R/A; dh3 12:19 BP 110 / 72; Pulse 81; Resp 18; Pulse Ox 100% on R/A; aj1 16:19 BP 103 / 70; Pulse 83; Resp 17; Pulse Ox 100% on R/A; aj1 10/18 01:38 BP 91 / 64; Pulse 76; Resp 14; Temp 98(O); Pulse Ox 98% on R/A; tl2 07:31 BP 106 / 76; Pulse 69; Resp 18; Temp 97.8(O); Pulse Ox 100% on R/A; mh5 10/15 10:29 Body Mass Index 24.96 (68.04 kg, 165.10 cm) em ED Course: 10/15 10:17 Patient arrived in ED. em 10:17 Kristian Lundberg PA is PHCP. cp 10:17 Kehinde Rios MD is Attending Physician. cp 10:29 Arm band placed on. em 10:32 Patient has correct armband on for positive identification. Placed in gown. Bed in low em position. Warm blanket given. 10:33 Shashank Dunn LVN is Primary Nurse. em 10:42 Missed attempt(s): 22 gauge in left antecubital area. jb1 10:42 Missed attempt(s):. jb1 10:49 Triage completed. hb 11:05 Initial lab(s) drawn, by me, sent to lab. Inserted saline lock: 22 gauge in left upper sv arm, using aseptic technique. ,using aseptic technique. diffusics Blood collected. Flushed left with 5 ml normal saline upper arm. 11:06 EKG done, by construction tech. reviewed by Kristian TRINIDAD. at1 11:30 Safety Checks: Personal items have been removed. The door is open or patient has been rf placed in a hallway bed/chair. There are no family/friend visitors at this time Sitter present at this time. wants anti-anxiety meds, informed nurse and doctor. 11:45 Safety Checks: Personal items have been removed. The door is open or patient has been rf placed in a hallway bed/chair. There are no family/friend visitors at this time Sitter present at this time. CORKY done. 11:51 US Pelvis Complete In Process Unspecified. EDMS 12:00 Safety Checks: Personal items have been removed. The door is open or patient has been dm5 placed in a hallway bed/chair. There are no family/friend visitors at this time Sitter present at this time. 12:00 Safety Checks: Personal items have been removed. The door is open or patient has been rf placed in a hallway bed/chair. There are no family/friend visitors at this time Sitter present at this time. 12:15 Safety Checks: Personal items have been removed. The door is open or patient has been rf placed in a hallway bed/chair. There are no family/friend visitors at this time Sitter present at this time. 13:00 Safety Checks: Personal items have been removed. The door is open or patient has been rf placed in a hallway bed/chair. There are no family/friend visitors at this time Sitter present at this time. pelvic exam done c/o doctor; patient stated still with vaginal bleeding and pain. Safety Checks: Personal items have been removed. The door is open or patient has been placed in a hallway bed/chair. There are no family/friend visitors at this time Sitter present at this time. 13:15 Safety Checks: Personal items have been removed. The door is open or patient has been rf placed in a hallway bed/chair. There are no family/friend visitors at this time Sitter present at this time. 13:30 Safety Checks: Personal items have been removed. The door is open or patient has been rf placed in a hallway bed/chair. There are no family/friend visitors at this time Sitter present at this time. CAT scan done, patient reported still hearing voices telling her she is a bad person and should not live. 13:33 CT completed. Patient tolerated procedure well. Patient moved to CT via stretcher. sj Patient moved back from CT. 13:35 CT Abd/Pelvis - W/Contrast: no oral contrast In Process Unspecified. EDMS 13:45 Safety Checks: Personal items have been removed. The door is open or patient has been rf placed in a hallway bed/chair. There are no family/friend visitors at this time Sitter present at this time. patient reported abdominal pain at right upper quadrant 8/. 13:45 Safety Checks: Personal items have been removed. The door is open or patient has been rf placed in a hallway bed/chair. There are no family/friend visitors at this time Sitter present at this time. complain of pain,meds given by nurse. 14:00 Safety Checks: Personal items have been removed. The door is open or patient has been rf placed in a hallway bed/chair. There are no family/friend visitors at this time Sitter present at this time. Other: Vital signs done, relayed to the nurse. 14:15 Safety Checks: Personal items have been removed. The door is open or patient has been rf placed in a hallway bed/chair. There are no family/friend visitors at this time Sitter present at this time. 14:30 Safety Checks: Personal items have been removed. The door is open or patient has been rf placed in a hallway bed/chair. There are no family/friend visitors at this time Sitter present at this time. patient stated she's hungry; started regular diet. 14:45 Safety Checks: Personal items have been removed. The door is open or patient has been rf placed in a hallway bed/chair. There are no family/friend visitors at this time Sitter present at this time. patient is asleep. 15:00 Safety Checks: Personal items have been removed. The door is open or patient has been rf placed in a hallway bed/chair. There are no family/friend visitors at this time Sitter present at this time. patient is sleeping. 15:29 Safety Checks: Personal items have been removed. The door is open or patient has been rf placed in a hallway bed/chair. There are no family/friend visitors at this time Sitter present at this time. patient is asleep. 15:45 Safety Checks: Personal items have been removed. The door is open or patient has been rf placed in a hallway bed/chair. There are no family/friend visitors at this time Sitter present at this time. patient stated she's still hungry,snacks were served. 15:45 called and spoke with Chayito at the [facility] crisis line/ she will call the screener eb out to come evaluate the patient. 16:00 Safety Checks: Personal items have been removed. The door is open or patient has been rf placed in a hallway bed/chair. There are no family/friend visitors at this time Sitter present at this time. antibiotic given by nurse. 16:15 Safety Checks: Personal items have been removed. The door is open or patient has been rf placed in a hallway bed/chair. There are no family/friend visitors at this time Sitter present at this time. reports wanted anti anxiety and pain meds;seen by doctor. 16:30 Safety Checks: Personal items have been removed. The door is open or patient has been rf placed in a hallway bed/chair. There are no family/friend visitors at this time Sitter present at this time. patient is eating snacks. 16:36 Kiko from the [facility] returned call and said she would be here later this eb evening. 16:45 Safety Checks: Personal items have been removed. The door is open or patient has been rf placed in a hallway bed/chair. There are no family/friend visitors at this time Sitter present at this time. meds given by nurse;patient reported still hearing voices. 17:00 Safety Checks: Personal items have been removed. The door is open or patient has been rf placed in a hallway bed/chair. There are no family/friend visitors at this time Sitter present at this time. patient resting in bed;provided bedside commode. 17:00 faxed patient record to the following facilities in the attempt to transfer/ [facility] [place], [facility], [facility], [facility], [facility], [facility], [facility], [facility], [facility], [facility], [facility], and [facility]. 17:15 Safety Checks: Personal items have been removed. The door is open or patient has been rf placed in a hallway bed/chair. There are no family/friend visitors at this time Sitter present at this time. resting in bed. 17:30 Safety Checks: Personal items have been removed. The door is open or patient has been rf placed in a hallway bed/chair. There are no family/friend visitors at this time Sitter present at this time. resting in bed. 17:45 Safety Checks: Personal items have been removed. The door is open or patient has been rf placed in a hallway bed/chair. There are no family/friend visitors at this time Sitter present at this time. patient is asleep. 18:00 Safety Checks: Personal items have been removed. The door is open or patient has been rf placed in a hallway bed/chair. There are no family/friend visitors at this time Sitter present at this time. vital signs done;relayed to the nurse. 18:15 Safety Checks: Personal items have been removed. The door is open or patient has been rf placed in a hallway bed/chair. There are no family/friend visitors at this time Sitter present at this time. patient is asleep. 18:32 Safety Checks: Personal items have been removed. The door is open or patient has been rf placed in a hallway bed/chair. There are no family/friend visitors at this time patient is asleep. 18:46 Safety Checks: Personal items have been removed. The door is open or patient has been rf placed in a hallway bed/chair. There are no family/friend visitors at this time Sitter present at this time. patient asked for juice. 18:59 Safety Checks: Personal items have been removed. The door is open or patient has been rf placed in a hallway bed/chair. There are no family/friend visitors at this time Sitter present at this time. patient still asleep. 20:19 Safety checks: Items removed: yes. Door open/sign placed on door: Patient placed in ag4 hallway bed. Family/friend present: no. Sitter present: Yes. 21:00 Safety checks: Items removed:. ag4 21:30 Safety checks: Items removed: yes. Door open/sign placed on door: Patient placed in ag4 hallway bed. Family/friend present: yes. no. Sitter present: Yes. 21:47 Safety checks: Items removed: yes. Door open/sign placed on door: Patient placed in ag4 hallway bed. Family/friend present: no. Sitter present: Yes. 22:17 Safety checks: Items removed: yes. Door open/sign placed on door: Patient placed in ag4 hallway bed. Family/friend present: no. Sitter present: Yes. 22:31 Safety checks: Items removed: yes. Door open/sign placed on door: Patient placed in ag4 hallway bed. Family/friend present: no. Sitter present: Yes. 22:46 Safety checks: Items removed: yes. Door open/sign placed on door: Patient placed in ag4 hallway bed. Family/friend present: no. Sitter present: Yes. 23:02 Safety checks: Items removed: yes. Door open/sign placed on door: Patient placed in ag4 hallway bed. Family/friend present: no. Sitter present: Yes. 23:07 PHCP role handed off by Kristian Lundberg PA [facility] 23:07 Matias Cruz PA is PHCP. [facility] 23:45 Safety checks: Items removed: yes. Door open/sign placed on door: Patient placed in ag4 hallway bed. Family/friend present: no. Sitter present: Yes. 09 00:21 Safety checks: Items removed: yes. Door open/sign placed on door: Patient placed in ag4 hallway bed. Family/friend present: no. Sitter present: Yes. 00:37 Safety checks: Items removed: yes. Door open/sign placed on door: Patient placed in ag4 hallway bed. Family/friend present: no. Sitter present: Yes. 00:45 Safety checks: Items removed: yes. Door open/sign placed on door: Patient placed in ag4 hallway bed. Family/friend present: no. Sitter present: Yes. 01:41 Safety checks: Items removed: yes. Door open/sign placed on door: Patient placed in ag4 hallway bed. Family/friend present: no. Sitter present: Yes. 02:16 Safety checks: Items removed: yes. Door open/sign placed on door: Patient placed in ag4 hallway bed. Family/friend present: no. Sitter present: Yes. 05:16 Safety checks: Items removed: yes. Door open/sign placed on door: Patient placed in ag4 hallway bed. Family/friend present: no. Sitter present: Yes. 06:24 Safety checks: Items removed: yes. Door open/sign placed on door: Patient placed in ag4 hallway bed. Family/friend present: no. Sitter present: Yes. 06:51 Safety checks: Items removed: yes. Door open/sign placed on door: Patient placed in ag4 hallway bed. Family/friend present: no. Sitter present: Yes. 07:07 Safety checks: Items removed: Door open/sign placed on door: Sitter present: Yes. jd2 07:16 Safety checks: Door open/sign placed on door: Sitter present: Yes. jd2 07:43 PHCP role handed off by Matias Cruz PA pm1 07:43 Roge Moreno NP is PHCP. pm1 07:43 Safety checks: Items removed: yes. Door open/sign placed on door: Sitter present: Yes. jd2 08:06 Safety checks: Items removed: yes. Door open/sign placed on door: Family/friend jd2 present: no. Sitter present: Yes. 08:15 Safety checks: Items removed: Door open/sign placed on door: Sitter present: Yes. jd2 08:22 [facility], they are currently at capacity but will have the doc eb agronomy location manager give our provider a call for transfer consultation. 08:36 Safety checks: Items removed: Door open/sign placed on door: Sitter present: Yes. jd2 08:55 Safety checks: Items removed: yes. Door open/sign placed on door: yes. Sitter present: jd2 Yes. 09:08 Safety checks: Items removed: yes. Door open/sign placed on door: yes. Family/friend jd2 present: no. Sitter present: Yes. 09:23 Safety checks: Items removed: yes. Door open/sign placed on door: yes. Family/friend jd2 present: no. Sitter present: Yes. 09:34 Safety checks: Items removed: yes. Door open/sign placed on door: yes. Family/friend jd2 present: no. Sitter present: Yes. 09:49 Safety checks: Items removed: yes. Door open/sign placed on door: yes. Family/friend jd2 present: no. Sitter present: Yes. 09:54 Safety checks: Items removed: yes. Door open/sign placed on door: yes. Family/friend jd2 present: yes. no. Sitter present: Yes. 10:00 Safety checks: Items removed: yes. Door open/sign placed on door: yes. Family/friend jd2 present: no. Sitter present: Yes. 10:28 Safety checks: Items removed: yes. Door open/sign placed on door: yes. Family/friend jd2 present: no. Sitter present: Yes. 10:47 Safety checks: Items removed: yes. Door open/sign placed on door: yes. Family/friend jd2 present: no. Sitter present: Yes. 11:06 Safety checks: Items removed: yes. Door open/sign placed on door: yes. Family/friend jd2 present: no. Sitter present: Yes. 11:38 Safety checks: Items removed: yes. Door open/sign placed on door: yes. Family/friend jd2 present: no. Sitter present: Yes. 11:57 Safety checks: Items removed: yes. Door open/sign placed on door: yes. Family/friend jd2 present: no. Sitter present: Yes. 12:14 Safety checks: Items removed: yes. Door open/sign placed on door: yes. Family/friend jd2 present: no. Sitter present: Yes. 12:17 Safety checks: Items removed: yes. Door open/sign placed on door: yes. Family/friend jd2 present: no. Sitter present: Yes. 12:30 Safety checks: Items removed: yes. Door open/sign placed on door: yes. Family/friend jd2 present: no. Sitter present: Yes. 12:45 Safety checks: Items removed: yes. Door open/sign placed on door: yes. Family/friend jd2 present: no. Sitter present: Yes. 13:00 Safety checks: Items removed: yes. Door open/sign placed on door: yes. Family/friend jd2 present: no. Sitter present: Yes. 13:03 Safety checks: Items removed: yes. Door open/sign placed on door: yes. Family/friend jd2 present: no. Sitter present: Yes. 13:30 Safety checks: Items removed: yes. Door open/sign placed on door: yes. Family/friend jd2 present: no. Sitter present: Yes. 13:44 Safety checks: Items removed: yes. Door open/sign placed on door: yes. Family/friend jd2 present: no. Sitter present: Yes. 14:00 Safety checks: Items removed: yes. Door open/sign placed on door: yes. Family/friend jd2 present: no. Sitter present: Yes. 14:15 Safety checks: Items removed: yes. Door open/sign placed on door: yes. Family/friend jd2 present: no. Sitter present: Yes. 14:30 Safety checks: Items removed: yes. Door open/sign placed on door: yes. Family/friend jd2 present: no. Sitter present: Yes. 14:42 Safety checks: Items removed: yes. Door open/sign placed on door: yes. Family/friend jd2 present: yes. no. Sitter present: Yes. 15:00 Safety checks: Items removed: yes. Door open/sign placed on door: yes. Family/friend jd2 present: yes. no. Sitter present: Yes. 15:14 Safety checks: Items removed: yes. Door open/sign placed on door: yes. Family/friend jd2 present: no. Sitter present: Yes. 15:24 Safety checks: Items removed: yes. Door open/sign placed on door: yes. Family/friend jd2 present: no. Sitter present: Yes. 15:30 Safety checks: Items removed: yes. Door open/sign placed on door: yes. Family/friend jd2 present: no. Sitter present: Yes. 15:45 Safety checks: Items removed: yes. Door open/sign placed on door: yes. Family/friend jd2 present: no. Sitter present: Yes. 16:00 Safety checks: Items removed: yes. Door open/sign placed on door: yes. Family/friend jd2 present: no. Sitter present: Yes. 16:15 Safety checks: Items removed: yes. Door open/sign placed on door: yes. Family/friend jd2 present: no. Sitter present: Yes. 16:30 Safety checks: Items removed: yes. Door open/sign placed on door: yes. Family/friend jd2 present: no. Sitter present: Yes. 16:45 Safety checks: Items removed: yes. Door open/sign placed on door: yes. Family/friend jd2 present: no. Sitter present: Yes. 17:00 Safety checks: Items removed: yes. Door open/sign placed on door: yes. Family/friend jd2 present: no. Sitter present: Yes. 17:15 Safety checks: Items removed: yes. Door open/sign placed on door: yes. Family/friend jd2 present: no. Sitter present: Yes. 17:30 Safety checks: Items removed: yes. Door open/sign placed on door: yes. Family/friend jd2 present: no. Sitter present: Yes. 17:45 Safety checks: Items removed: yes. Door open/sign placed on door: yes. Family/friend jd2 present: no. Sitter present: Yes. 18:00 Safety checks: Items removed: yes. Door open/sign placed on door: yes. Family/friend jd2 present: no. Sitter present: Yes. 18:15 Safety checks: Items removed: yes. Door open/sign placed on door: yes. Family/friend jd2 present: no. Sitter present: Yes. 18:30 Safety checks: Items removed: yes. Door open/sign placed on door: yes. Family/friend ar5 present: no. Sitter present: Yes. 18:45 Safety checks: Items removed: yes. Door open/sign placed on door: yes. Family/friend ar5 present: no. Sitter present: Yes. 19:00 Safety checks: Items removed: yes. Door open/sign placed on door: yes. Family/friend ar5 present: no. Sitter present: Yes. 19:15 Safety checks: Items removed: yes. Door open/sign placed on door: yes. Family/friend ar5 present: no. Sitter present: Yes. 19:26 PHCP role handed off by Roge Moreno NP snw 19:26 Priya Lui FNP-C is PHCP. [facility] 19:30 Safety checks: Items removed: yes. Door open/sign placed on door: yes. Family/friend ar5 present: no. Sitter present: Yes. 19:45 Safety checks: Items removed: yes. Door open/sign placed on door: yes. Family/friend ar5 present: no. Sitter present: Yes. 20:00 Safety checks: Items removed: yes. Door open/sign placed on door: yes. Family/friend ar5 present: no. Sitter present: Yes. 20:15 Safety checks: Items removed: yes. Door open/sign placed on door: yes. Family/friend ar5 present: no. Sitter present: Yes. 20:30 Safety checks: Items removed: yes. Door open/sign placed on door: yes. Family/friend ar5 present: no. Sitter present: Yes. 20:45 Safety checks: Items removed: yes. Door open/sign placed on door: yes. Family/friend ar5 present: no. Sitter present: Yes. 21:00 Safety checks: Items removed: yes. Door open/sign placed on door: yes. Family/friend ar5 present: no. Sitter present: Yes. 21:15 Safety checks: Items removed: yes. Door open/sign placed on door: yes. Family/friend ar5 present: no. Sitter present: Yes. 21:30 Safety checks: Items removed: yes. Door open/sign placed on door: yes. Family/friend ar5 present: no. Sitter present: Yes. 21:35 Primary Nurse role handed off by Shashank Dunn LVN jb4 21:35 Isaiah Storm, JEFERSON is Primary Nurse. jb4 21:36 Diet: sandwich, soda, and fruit. ar5 21:45 Safety checks: Items removed: yes. Door open/sign placed on door: yes. Family/friend ar5 present: no. Sitter present: Yes. 22:00 Safety checks: Items removed: yes. Door open/sign placed on door: yes. Family/friend ar5 present: no. Sitter present: Yes. 22:15 Safety checks: Items removed: yes. Door open/sign placed on door: yes. Family/friend ar5 present: no. Sitter present: Yes. 22:30 Safety checks: Items removed: yes. Door open/sign placed on door: yes. Family/friend ar5 present: no. Sitter present: Yes. 22:45 Safety checks: Items removed: yes. Door open/sign placed on door: yes. Family/friend ar5 present: no. Sitter present: Yes. 23:00 Safety checks: Items removed: yes. Door open/sign placed on door: yes. Family/friend ar5 present: no. Sitter present: Yes. 23:15 Safety checks: Items removed: yes. Door open/sign placed on door: yes. Family/friend ar5 present: no. Sitter present: Yes. 23:30 Safety checks: Items removed: yes. Door open/sign placed on door: yes. Family/friend ar5 present: no. Sitter present: Yes. 23:45 Safety checks: Items removed: yes. Door open/sign placed on door: yes. Family/friend ar5 present: no. Sitter present: Yes. 10/17 00:00 Safety checks: Items removed: yes. Door open/sign placed on door: yes. Family/friend ar5 present: no. Sitter present: Yes. 00:15 Safety checks: Items removed: yes. Door open/sign placed on door: yes. Family/friend ar5 present: no. Sitter present: Yes. 00:30 Safety checks: Items removed: yes. Door open/sign placed on door: yes. Family/friend ar5 present: no. Sitter present: Yes. 00:45 Safety checks: Items removed: yes. Door open/sign placed on door: yes. Family/friend ar5 present: no. Sitter present: Yes. 01:00 Safety checks: Items removed: yes. Door open/sign placed on door: yes. Family/friend ar5 present: no. Sitter present: Yes. 01:15 Safety checks: Items removed: yes. Door open/sign placed on door: yes. Family/friend ar5 present: no. Sitter present: Yes. 01:30 Safety checks: Items removed: yes. Door open/sign placed on door: yes. Family/friend ar5 present: no. Sitter present: Yes. 01:45 Safety checks: Items removed: yes. Door open/sign placed on door: yes. Family/friend ar5 present: no. Sitter present: Yes. 02:00 Safety checks: Items removed: yes. Door open/sign placed on door: yes. Family/friend ar5 present: no. Sitter present: Yes. 02:15 Safety checks: Items removed: yes. Door open/sign placed on door: yes. Family/friend ar5 present: no. Sitter present: Yes. 02:30 Safety checks: Items removed: yes. Door open/sign placed on door: yes. Family/friend ar5 present: no. Sitter present: Yes. 02:45 Safety checks: Items removed: yes. Door open/sign placed on door: yes. Family/friend ar5 present: no. Sitter present: Yes. 03:00 Safety checks: Items removed: yes. Door open/sign placed on door: yes. Family/friend ar5 present: no. Sitter present: Yes. 03:15 Safety checks: Items removed: yes. Door open/sign placed on door: yes. Family/friend ar5 present: no. Sitter present: Yes. 03:30 Safety checks: Items removed: yes. Door open/sign placed on door: yes. Family/friend ar5 present: no. Sitter present: Yes. 03:45 Safety checks: Items removed: yes. Door open/sign placed on door: yes. Family/friend ar5 present: no. Sitter present: Yes. 04:00 Safety checks: Items removed: yes. Door open/sign placed on door: yes. Family/friend ar5 present: no. Sitter present: Yes. 04:15 Safety checks: Items removed: yes. Door open/sign placed on door: yes. Family/friend ag4 present: no. Sitter present: Yes. 04:30 Safety checks: Items removed: yes. Door open/sign placed on door: yes. Family/friend ag4 present: no. Sitter present: Yes. 04:45 Safety checks: Items removed: yes. Door open/sign placed on door: yes. Family/friend ag4 present: no. Sitter present: Yes. 05:00 Safety checks: Items removed: Door open/sign placed on door: yes. Family/friend ag4 present: no. Sitter present: Yes. 05:15 Safety checks: Items removed: yes. Door open/sign placed on door: yes. Family/friend ag4 present: no. Sitter present: Yes. 05:30 Safety checks: Items removed: yes. Door open/sign placed on door: yes. Family/friend ag4 present: no. Sitter present: Yes. 05:45 Safety checks: Items removed: yes. Door open/sign placed on door: yes. Family/friend ag4 present: no. Sitter present: Yes. 06:00 Safety checks: Items removed: yes. Door open/sign placed on door: yes. Family/friend ag4 present: no. Sitter present: Yes. 06:01 Diet: Hooker, 2 juice. ag4 06:15 Safety checks: Items removed: yes. Door open/sign placed on door: yes. Family/friend ar5 present: no. Sitter present: Yes. 06:30 Safety checks: Items removed: yes. Door open/sign placed on door: yes. Family/friend ar5 present: no. Sitter present: Yes. 07:00 Safety checks: Items removed: yes. Door open/sign placed on door: yes. Family/friend dh3 present: no. Sitter present: Yes. 07:15 Safety checks: Items removed: yes. Door open/sign placed on door: yes. Family/friend dh3 present: no. Sitter present: Yes. 07:19 Attending Physician role handed off by Kehinde Rios MD rn 07:19 Kiran Cole MD is Attending Physician. rn 07:30 Safety checks: Items removed: yes. Door open/sign placed on door: yes. Family/friend dh3 present: no. Sitter present: Yes. 07:45 Safety checks: Items removed: yes. Door open/sign placed on door: yes. Family/friend dh3 present: no. Sitter present: Yes. 08:00 Safety checks: Items removed: yes. Door open/sign placed on door: yes. Family/friend dh3 present: no. Sitter present: Yes. 08:15 Safety checks: Items removed: yes. Door open/sign placed on door: yes. Family/friend dh3 present: no. Sitter present: Yes. 08:30 Safety checks: Items removed: yes. Door open/sign placed on door: yes. Family/friend dh3 present: no. Sitter present: Yes. 08:45 Safety checks: Items removed: yes. Door open/sign placed on door: yes. Family/friend dh3 present: no. Sitter present: Yes. 09:00 Safety checks: Items removed: yes. Door open/sign placed on door: yes. Family/friend dh3 present: no. Sitter present: Yes. 09:15 Safety checks: Items removed: yes. Door open/sign placed on door: yes. Family/friend dh3 present: no. Sitter present: Yes. 09:30 Safety checks: Items removed: yes. Door open/sign placed on door: yes. Family/friend dh3 present: no. Sitter present: Yes. 09:45 Safety checks: Items removed: yes. Door open/sign placed on door: yes. Family/friend dh3 present: no. Sitter present: Yes. 10:00 Safety checks: Items removed: yes. Door open/sign placed on door: yes. Family/friend dh3 present: no. Sitter present: Yes. 10:15 Safety checks: Items removed: yes. Door open/sign placed on door: yes. Family/friend dh3 present: no. Sitter present: Yes. 10:30 Safety checks: Items removed: yes. Door open/sign placed on door: yes. Family/friend dh3 present: no. Sitter present: Yes. 10:45 Safety checks: Items removed: yes. Door open/sign placed on door: yes. Family/friend dh3 present: no. Sitter present: Yes. 11:00 Safety checks: Items removed: yes. Door open/sign placed on door: yes. Family/friend dh3 present: no. Sitter present: Yes. 11:15 Safety checks: Items removed: yes. Door open/sign placed on door: yes. Family/friend dh3 present: no. Sitter present: Yes. 11:30 Safety checks: Items removed: yes. Door open/sign placed on door: yes. Family/friend dh3 present: no. Sitter present: Yes. 11:45 Safety checks: Items removed: yes. Door open/sign placed on door: yes. Family/friend dh3 present: no. Sitter present: Yes. 12:00 Safety checks: Items removed: yes. Door open/sign placed on door: yes. Family/friend dh3 present: no. Sitter present: Yes. 12:15 Safety checks: Items removed: yes. Door open/sign placed on door: yes. Family/friend dh3 present: no. Sitter present: Yes. 12:30 Safety checks: Items removed: yes. Door open/sign placed on door: yes. Family/friend dh3 present: no. Sitter present: Yes. 12:45 Safety checks: Items removed: yes. Door open/sign placed on door: yes. Family/friend dh3 present: no. Sitter present: Yes. 13:00 Safety checks: Items removed: yes. Door open/sign placed on door: yes. Family/friend dh3 present: no. Sitter present: Yes. 13:15 Safety checks: Items removed: yes. Door open/sign placed on door: yes. Family/friend dh3 present: no. Sitter present: Yes. 13:30 Safety checks: Items removed: yes. Door open/sign placed on door: yes. Family/friend dh3 present: no. Sitter present: Yes. 13:45 Safety checks: Items removed: yes. Door open/sign placed on door: yes. Family/friend dh3 present: no. Sitter present: Yes. 14:00 Safety checks: Items removed: yes. Door open/sign placed on door: yes. Family/friend dh3 present: no. Sitter present: Yes. 14:15 Safety checks: Items removed: yes. Door open/sign placed on door: yes. Family/friend dh3 present: no. Sitter present: Yes. 14:30 Safety checks: Items removed: yes. Door open/sign placed on door: yes. Family/friend dh3 present: no. Sitter present: Yes. 14:45 Safety checks: Items removed: yes. Door open/sign placed on door: yes. Family/friend dh3 present: no. Sitter present: Yes. 15:00 Safety checks: Items removed: yes. Door open/sign placed on door: yes. Family/friend dh3 present: no. Sitter present: Yes. 15:15 Safety checks: Items removed: yes. Door open/sign placed on door: yes. Family/friend dh3 present: no. Sitter present: Yes. 15:30 Safety checks: Items removed: yes. Door open/sign placed on door: yes. Family/friend dh3 present: no. Sitter present: Yes. 15:45 Safety checks: Items removed: yes. Door open/sign placed on door: yes. Family/friend dh3 present: no. Sitter present: Yes. 16:00 Safety checks: Items removed: yes. Door open/sign placed on door: yes. Family/friend dh3 present: no. Sitter present: Yes. 16:15 Safety checks: Items removed: yes. Door open/sign placed on door: yes. Family/friend dh3 present: no. Sitter present: Yes. 16:30 Safety checks: Items removed: yes. Door open/sign placed on door: yes. Family/friend dh3 present: no. Sitter present: Yes. 16:45 Safety checks: Items removed: yes. Door open/sign placed on door: yes. Family/friend dh3 present: no. Sitter present: Yes. 17:00 Safety checks: Items removed: yes. Door open/sign placed on door: yes. Family/friend dh3 present: no. Sitter present: Yes. 17:15 Safety checks: Items removed: yes. Door open/sign placed on door: yes. Family/friend dh3 present: no. Sitter present: Yes. 17:30 Safety checks: Items removed: yes. Door open/sign placed on door: yes. Family/friend dh3 present: no. Sitter present: Yes. 17:45 Safety checks: Items removed: yes. Door open/sign placed on door: yes. Family/friend dh3 present: no. Sitter present: Yes. 18:00 Safety checks: Items removed: yes. Door open/sign placed on door: yes. Family/friend dh3 present: no. Sitter present: Yes. 18:15 Safety checks: Items removed: yes. Door open/sign placed on door: yes. Family/friend dh3 present: no. Sitter present: Yes. 18:30 Safety checks: Items removed: yes. Door open/sign placed on door: yes. Family/friend dh3 present: no. Sitter present: Yes. 18:45 Safety checks: Items removed: yes. Door open/sign placed on door: yes. Family/friend dh3 present: no. Sitter present: Yes. 19:00 Safety checks: Items removed: yes. Door open/sign placed on door: yes. Family/friend dh3 present: no. Sitter present: Yes. 10/18 02:42 Safety checks: Items removed: yes. Door open/sign placed on door: Patient placed in ag4 hallway bed. Family/friend present: no. Sitter present: Yes. 03:31 Safety checks: Items removed: yes. Door open/sign placed on door: Patient placed in ag4 hallway bed. Family/friend present: no. Sitter present: Yes. No. 04:10 Safety checks: Items removed: yes. Door open/sign placed on door: Patient placed in ag4 hallway bed. Family/friend present: no. Sitter present: Yes. 04:24 Safety checks: Items removed: yes. Door open/sign placed on door: Patient placed in ag4 hallway bed. Family/friend present: no. Sitter present: Yes. 04:49 Safety checks: Items removed: yes. Door open/sign placed on door: Patient placed in ag4 hallway bed. Family/friend present: no. Sitter present: Yes. 05:12 Safety checks: Items removed: yes. Door open/sign placed on door: Patient placed in ag4 hallway bed. Family/friend present: no. Sitter present: Yes. 05:25 Safety checks: Items removed: yes. Door open/sign placed on door: Patient placed in ag4 hallway bed. Family/friend present: no. Sitter present: No. 05:46 Safety checks: Items removed: yes. Door open/sign placed on door: Patient placed in ag4 hallway bed. Family/friend present: no. Sitter present: Yes. 05:57 Safety checks: Items removed: yes. Door open/sign placed on door: Patient placed in ag4 hallway bed. Family/friend present: no. Sitter present: Yes. 06:14 Attending Physician role handed off by Kiran Cole MD [facility] 06:14 Kristian Ochoa MD is Attending Physician. ricky 07:00 Safety checks: Items removed: yes. Door open/sign placed on door: yes. Family/friend mh5 present: no. Sitter present: Yes. 07:06 Bg Hernandez RN is Primary Nurse. hj 07:10 Report received from JEFERSON Stiles. hj 07:15 Safety checks: Items removed: yes. Door open/sign placed on door: yes. Family/friend mh5 present: no. Sitter present: Yes. 07:30 Safety checks: Items removed: yes. Door open/sign placed on door: yes. Family/friend mh5 present: no. Sitter present: Yes. 07:45 Safety checks: Items removed: yes. Door open/sign placed on door: yes. Family/friend mh5 present: no. Sitter present: Yes. Safety checks:. 07:47 refaxed patient information with an updated face sheet to the following facilities in the attempt to initiate transfer; [facility], [facility], [facility], [facility], [facility], [facility], [facility], [facility], [facility], [facility], [facility]. 08:00 Safety checks: Items removed: yes. Door open/sign placed on door: yes. Family/friend mh5 present: no. Sitter present: Yes. 08:15 Safety checks: Items removed: yes. Door open/sign placed on door: yes. Family/friend mh5 present: no. Sitter present: Yes. 08:15 called [facility] to let them know the patient is still in the ER. eb 08:20 called and spoke with Xochitl at [facility] , she asked to please refax patient information. eb 08:23 Diet: Patient given a regular meal tray. mh5 08:30 Safety checks: Items removed: yes. Door open/sign placed on door: yes. Family/friend mh5 present: no. Sitter present: Yes. 08:43 Attending Physician role handed off by Kristian Ochoa MD 08:43 Jacob Kerr MD is Attending Physician. 08:45 Safety checks: Items removed: yes. Door open/sign placed on door: yes. Family/friend mh5 present: Other: SECURITY IN FRONT OF ROOM . Sitter present: Yes. 09:00 Safety checks: Items removed: yes. Door open/sign placed on door: yes. Family/friend mh5 present: Other: SECURITY CALLED TO WALK HER BACK TO ROOM . Sitter present: Yes. 09:03 connected Disha GOVEA from [facility] with ED nurse for nurse to nurse on patient transfer. eb 09:05 Diet: Patient given a regular meal tray. mh5 09:[address] Galvan from [facility] with ED doc for doc to doc on patient transfer. eb 09:12 administrative approval given by Yi Acosta from [facility]. 09:15 Safety checks: Items removed: yes. Door open/sign placed on door: yes. Family/friend mh5 present: no. Sitter present: Yes. 09:27 Safety checks: Family/friend present: Other: CALLED FAMILY [phone]. mh5 09:30 Safety checks: Items removed: yes. Door open/sign placed on door: yes. Family/friend mh5 present: no. Sitter present: Yes. 09:50 Patient did not have IV access during this emergency room visit. Pressure dressing mh5 applied. 09:51 PATIENT GIVEN HER OWN CLOTHES AND WAITING FOR EMS TRANSFER. mh5 09:57 Safety checks: Items removed: yes. Door open/sign placed on door: yes. Family/friend mh5 present: no. Sitter present: Yes. EMS HERE FOR PATIENT TO GO TO [facility] . [facility] GETTING REPORT FROM BG GOVEA .. 10:02 No provider procedures requiring assistance completed. hj 10:05 IV discontinued, intact, bleeding controlled, No redness/swelling at site. hj Administered Medications: 08 11:10 Drug: Zofran 4 mg Route: IVP; Site: left upper arm; sv 13:42 Follow up: Response: No adverse reaction em 11:12 Drug: morphine 2 mg Route: IVP; Site: left upper arm; sv 13:42 Follow up: Response: No adverse reaction; Pain is decreased em 12:47 Drug: Benadryl 12.5 mg Route: IVP; Site: left upper arm; hb 13:42 Follow up: Response: No adverse reaction em 13:50 Drug: morphine 2 mg Route: IVP; Site: left upper arm; em 16:00 Follow up: Response: No adverse reaction; Pain is decreased em 16:11 Drug: Zofran 4 mg Route: IVP; Site: left upper arm; em 16:43 Follow up: Response: No adverse reaction; Nausea is decreased em 16:18 Drug: Zithromax 1 grams Route: PO; em 16:43 Follow up: Response: No adverse reaction em 16:33 Drug: Rocephin - (cefTRIAXone) 1 grams {Note: administered IVP per pharmacy at this aa5 time. .} Route: IVPB; Infused Over: 30 mins; Site: right upper arm; 16:48 Drug: Ativan 0.5 mg Route: IVP; Site: left upper arm; aa5 17:32 Follow up: Response: No adverse reaction; Anxiety decreased em 16:57 Drug: Tylenol 1000 mg Route: PO; em 17:32 Follow up: Response: No adverse reaction em 23:03 Drug: Doxycycline 100 mg Route: PO; ea 10/16 00:00 Follow up: Response: No adverse reaction ea 10/15 23:03 Drug: metroNIDAZOLE 250 mg Route: PO; ea 10/16 05:27 Follow up: Response: No adverse reaction ea 10:10 Drug: Flagyl 2 grams Route: PO; em 10:34 Follow up: Response: No adverse reaction em 15:03 Drug: Ativan 0.5 mg Route: IVP; Site: left upper arm; em 16:30 Follow up: Response: No adverse reaction em 10/17 06:23 Not Given (Other Intervention Used): Ativan 0.5 mg IVP once jb4 06:23 Drug: Ativan 1 mg Route: IVP; Site: left antecubital; jb4 07:29 Follow up: Response: No adverse reaction; Anxiety decreased hb 07:28 Drug: Stigler 10 mg-325 mg 1 tabs Route: PO; hb 08:15 Follow up: Response: No adverse reaction hb 09:51 Drug: Ativan 1 mg Route: IVP; Site: left antecubital; hb 11:00 Follow up: Response: No change in condition hb 10:09 Drug: Valium 5 mg Route: PO; hb 11:00 Follow up: Response: No change in condition hb 10:41 Drug: Geodon 10 mg Route: IM; Site: right deltoid; hb 12:00 Drug: Geodon 10 mg Route: IM; Site: right deltoid; aj1 10/18 07:22 Follow up: Response: No adverse reaction hj 10/17 16:06 Drug: Benadryl 25 mg Route: IVP; Site: left antecubital; aj1 20:02 Drug: Benadryl 25 mg Route: IVP; Site: left upper arm; tl2 21:00 Follow up: Response: No adverse reaction; Anxiety decreased tl2 10/18 01:45 Drug: Benadryl 25 mg Route: IVP; Site: left upper arm; tl2 07:22 Follow up: Response: No adverse reaction hj 02:05 Drug: Tylenol 1000 mg Route: PO; tl2 03:00 Follow up: Response: No adverse reaction; Pain is decreased jb4 05:00 Drug: Benadryl 25 mg Route: PO; jb4 06:57 Follow up: Response: No adverse reaction jb4 08:42 Drug: Stigler 5 mg-325 mg 1 tabs Route: PO; hj 09:19 Follow up: Response: No adverse reaction hj 08:42 Drug: KeFLEX 500 mg Route: PO; hj 09:19 Follow up: Response: No adverse reaction hj 08:42 Drug: hydrOXYzine 25 mg Route: PO; hj 09:18 Follow up: Response: No adverse reaction hj 09:17 Drug: ZyPREXA 10 mg Route: PO; hj 09:20 Follow up: Response: No adverse reaction hj 09:17 Drug: TRAZADONE 50 mg Route: PO; hj 09:19 Follow up: Response: No adverse reaction hj Outcome: 06:19 ER care complete, transfer ordered by . ricky 10:04 Transferred by ground EMS Transfer form completed. Note: [facility] with meds and personal belongings 10:04 Condition: stable 10:05 Patient left the ED. Signatures: Dispatcher [employer] EDHubert Kinney jb1 Shakira Ponce RN RN Sulma Oh, RN JEFERSON dm5 Shannon Arellano RN Kristian Estrada MD MD cha Therrien, Shelly, INTERNET CAFE MANAGER-C INTERNET CAFE MANAGER-Csnw Matias Cruz PA PA jmm Jones, Susan sj Munoz, Edgar, METAL CASKET ASSEMBLER METAL CASKET ASSEMBLER em Emily Verma RN RN iw Nieto, Roman, MD MD rn Calderon, Audri, RN RN aa5 Trinidad Moody RN RN ss Aisha Wilson, helicopter technician EKG Tat1 Bg Hernandez RN RN hj Page, Corey, PA PA cp Roge Moreno, LABORATORY MECHANICAL TECHNICIAN LABORATORY MECHANICAL TECHNICIAN pm1 Ashley Vance RN RN hb Knox, Taylor, RN RN tl2 Siddhartha Medley James, RN RN jb4 Yesika Zuleta Avis Potts [facility] Suellen Mills RN Jacob Ramirez ea, MD MD gs Botello, Elizabeth eb Rothman, Matt ag4 Teagan Ryan ar5 Jazmyne Patel, RN RN rf Corrections: (The following items were deleted from the chart) 10/15 15:35 14:00 Safety Checks: Personal items have been removed. The door is open or patient has rf been placed in a hallway bed/chair. There are no family/friend visitors at this time Sitter present at this time. rf 16:45 16:00 Safety Checks: Personal items have been removed. The door is open or patient has rf been placed in a hallway bed/chair. There are no family/friend visitors at this time Sitter present at this time. antibiotic given by nurse rf 17:40 17:00 Safety Checks: Personal items have been removed. The door is open or patient has rf been placed in a hallway bed/chair. There are no family/friend visitors at this time Sitter present at this time. patient resting in bed;provided bedside commode rf 10/17 11:07 11:00 Reassessment: Geodon administered as ordered. Immediately after administration pt hb began screaming "I want fucking medicine that fucking works, not shit that doesn't work for me!" Pt then started thrashing in the bed, threw pushed the metal bedside table toweard the nurse, knocking table over, then began throwing her juice and water cup towards doorway. Mental Health Panther at bedside at this time. hb 19:13 19:11 Reassessment: Patient has returned to her bed, is sitting up in the bed aj1 screaming. aj1
[2018-10-18] MEDS ORDERED: CEPHALEXIN 250 MG CAP ONE (08:57)
[2018-10-18] MEDS ORDERED: HYDROCODONE/APAP 5/325 MG TAB ONE (08:57)
[2018-10-18] MEDS ORDERED: hydrOXYzine HCl 25 MG TAB ONE (08:58)
[2018-10-18] MEDS ORDERED: OLANZapine 10 MG TABLET PO ONE (09:15)
[2018-10-18] MEDS ORDERED: TRAZODONE 50 MG TABLET PO ONE (09:15)
[2018-10-18 20:02] LABS: C.trachomatis RNA,TMA Not Detected (Not Detected)
== END 2018-10-18 10:05 ==
LOC: ER 10:14
DX: F33.9 Major depressive disorder, recurrent, unspecified (principal); F14.10 Cocaine abuse, uncomplicated; F17.210 Nicotine dependence, cigarettes, uncomplicated; Z88.0 Allergy status to penicillin; Z88.5 Allergy status to narcotic agent; Z88.8 Allergy status to other drugs, medicaments and biological substances
CPT/HCPCS: 36415; 74177; 76856; 80048; 80076; 80307; 80320; 80329; 81003; 81025; 83690; 84702; 85025; 85610; 85730; 87210; 87490; 87590; 93005; 96372; 96374; 96375; 99285; J0696; J2270; J2405; J3486; Q9967